=== PATIENT | female | born 1960 | race Caucasian/White ===

== ENCOUNTER 2017-06-12 05:53 | Inpatient (IN) ==
[2017-06-12] MEDS ORDERED: methylPREDNISolone 125 MG/2 ML VIAL IVP ONE (06:12)
[2017-06-12] MEDS ORDERED: Ipratropium/Albuterol Neb 3 ML IH ONE (06:12)
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
[2017-06-12 06:47] LABS: Basophils # 0.1 K/mcL (0.0-0.2); Basophils % 0.4 %; Eosinophils # 0.3 K/mcL (0.0-0.6); Eosinophils % 2.8 %; Hemoglobin 14.4 g/dL (11.5-15.4); Immature Granulocytes % 0.5 % (0-4); Lymphocytes # 1.4 K/mcL (0.6-4.6); Mean Corpuscular Hemoglobin 30.8 pg (28.0-33.3); Mean Corpuscular Volume 96.2 fL (83.0-100.0); Mean Platelet Volume 9.2 fL (9.4-12.4); Monocytes # 0.9 K/mcL (0.0-1.3); Monocytes % 7.7 %; Neutrophils # 8.7 K/mcL (1.6-8.9); Platelet Count 466 K/mcL (140-400); Red Blood Count 4.68 M/mcL (3.82-4.97); Segmented Neutrophils % 76.6 %
[2017-06-12 07:00] LABS: BUN/Creatinine Ratio 8 (6-26); Blood Urea Nitrogen 6 mg/dL (7-20); Calcium 9.4 mg/dL (8.6-10.8); Carbon Dioxide 28 mEq/L (19-29); Chloride 105 mEq/L (98-109); Glucose 102 mg/dL (70-99); Osmolality,Calculated 286 (280-300); Potassium 4.9 mEq/L (3.5-4.5); Sodium 139 mEq/L (136-145); eGFR For African Americans > 60 (> 60); eGFR For Non-African Americans > 60 (> 60)
[2017-06-12] MEDS ORDERED: *HR* OxyCODONE/APAP 5/325 TABLET PO ONE (07:32)
[2017-06-12] MEDS ORDERED: Acetaminophen 325 MG TABLET PO PRN (09:30)
[2017-06-12] MEDS ORDERED: Naloxone 0.4 MG/ML INJ IVP PRN (09:30)
[2017-06-12] MEDS ORDERED: Albuterol 2.5 MG/3 ML NEBULIZER IH PRN (09:30)
[2017-06-12] MEDS ORDERED: Famotidine 20 MG TABLET PO PRN (09:35)
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
[2017-06-12] MEDS: 0.9 % Sodium Chloride 1,000 ML IVC SCH ×2 (10:32→20:03)
[2017-06-12] MEDS: *HR* Heparin 5,000 UNIT/ML VIAL SQ SCH ×2 (10:36→16:47)
[2017-06-12] MEDS: levoFLOXacin 500 MG TABLET PO SCH (10:36)
[2017-06-12] MEDS: Ipratropium/Albuterol Neb 3 ML IH SCH ×4 (11:19→23:39)
--- NOTE | 2017-06-12 15:39 | Electrocardiograph Report ---
[place] [id number] Test Date: 2017-06-12 Pat Name: Delmis Ro Department: 104 Room: [facility] Gender: F Engraver: AMANDA : 1960 Requested By: Tracy Perera Order Number: [id number] Reading MD: Yasmany Sarabia Measurements Intervals [place] Rate: 94 P: 79 AL: 153 QRS: 69 QRSD: 84 T: 61 QT: 320 QTc: 372 Interpretive Statements SINUS RHYTHM WITH FREQUENT VENTRICULAR PREMATURE COMPLEXES ABNORMAL RHYTHM ECG Electronically Signed On 06-12-2017 15:37:35 EST by Yasmany Sarabia
[2017-06-12] MEDS: methylPREDNISolone 125 MG/2 ML VIAL IVP SCH (16:44)
[2017-06-12] MEDS: *HR* OxyCODONE Immed Rel 5 MG TABLET PO PRN (17:09)
[2017-06-12] MEDS: lamoTRIgine 100 MG TABLET PO SCH (20:02)
[2017-06-12] MEDS: clonazePAM 1 MG TABLET PO SCH (20:03)
[2017-06-13] MEDS: *HR* OxyCODONE Immed Rel 5 MG TABLET PO PRN ×2 (00:06→06:35)
[2017-06-13] MEDS: methylPREDNISolone 125 MG/2 ML VIAL IVP SCH ×3 (00:06→16:47)
[2017-06-13] MEDS: Ipratropium/Albuterol Neb 3 ML IH SCH ×6 (04:05→23:22)
[2017-06-13 04:42] LABS: Alanine Aminotransferase 16 Units/L (0-55); Albumin 2.7 g/dL (3.5-5.0); Albumin/Globulin Ratio 0.8 (1.1-2.2); Alkaline Phosphatase 139 Units/L (38-126); Aspartate Amino Transferase 13 Units/L (5-34); BUN/Creatinine Ratio 19 (6-26); Bilirubin,Total 0.2 mg/dL (0.2-1.2); Blood Urea Nitrogen 13 mg/dL (7-20); Calcium 9.2 mg/dL (8.6-10.8); Carbon Dioxide 27 mEq/L (19-29); Chloride 107 mEq/L (98-109); Globulin 3.4 g/dL (2.4-3.5); Glucose 179 mg/dL (70-99); Magnesium 1.7 mg/dL (1.6-2.6); Osmolality,Calculated 297 (280-300); Potassium 4.1 mEq/L (3.5-4.5); Sodium 141 mEq/L (136-145); Total Protein 6.1 g/dL (6.0-8.3); eGFR For African Americans > 60 (> 60); eGFR For Non-African Americans > 60 (> 60)
[2017-06-13] MEDS: *HR* Heparin 5,000 UNIT/ML VIAL SQ SCH ×2 (06:31→16:51)
[2017-06-13] MEDS: clonazePAM 1 MG TABLET PO SCH ×2 (09:00→20:05)
[2017-06-13] MEDS: lamoTRIgine 100 MG TABLET PO SCH ×2 (09:00→20:04)
[2017-06-13] MEDS: levoFLOXacin 500 MG TABLET PO SCH (09:01)
[2017-06-13] MEDS: ARIPiprazole 10 MG TABLET PO SCH (09:02)
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
[2017-06-13] MEDS ORDERED: traMADol 50 MG TABLET PO PRN (14:50)
[2017-06-14] MEDS: methylPREDNISolone 125 MG/2 ML VIAL IVP SCH ×3 (00:14→16:33)
[2017-06-14] MEDS: Ipratropium/Albuterol Neb 3 ML IH SCH ×6 (03:21→23:36)
[2017-06-14] MEDS: *HR* Heparin 5,000 UNIT/ML VIAL SQ SCH ×2 (05:18→16:32)
[2017-06-14 05:39] LABS: Basophils % 0.1 %; Hematocrit 39.9 % (35.3-44.9); Immature Granulocytes % 0.5 % (0-4); Lymphocytes # 0.9 K/mcL (0.6-4.6); Lymphocytes % 4.9 %; Mean Corpuscular HGB Conc 31.1 g/dL (31.6-35.5); Mean Corpuscular Hemoglobin 30.2 pg (28.0-33.3); Mean Corpuscular Volume 97.1 fL (83.0-100.0); Mean Platelet Volume 9.8 fL (9.4-12.4); Monocytes % 1.3 %; Platelet Count 506 K/mcL (140-400); Red Blood Count 4.11 M/mcL (3.82-4.97); Red Cell Distribution Width 16.5 % (11.5-14.5); Segmented Neutrophils % 93.2 %
[2017-06-14 05:50] LABS: Hemoglobin 12.4 g/dL (11.5-15.4); Monocytes # 0.2 K/mcL (0.0-1.3); Neutrophils # 17.2 K/mcL (1.6-8.9)
[2017-06-14 07:25] LABS: BUN/Creatinine Ratio 16 (6-26); Blood Urea Nitrogen 11 mg/dL (7-20); Calcium 9.7 mg/dL (8.6-10.8); Carbon Dioxide 24 mEq/L (19-29); Chloride 107 mEq/L (98-109); Glucose 132 mg/dL (70-99); Osmolality,Calculated 289 (280-300); Potassium 4.4 mEq/L (3.5-4.5); Sodium 139 mEq/L (136-145); eGFR For African Americans > 60 (> 60); eGFR For Non-African Americans > 60 (> 60)
[2017-06-14] MEDS: levoFLOXacin 500 MG TABLET PO SCH (07:36)
[2017-06-14] MEDS: lamoTRIgine 100 MG TABLET PO SCH ×2 (07:36→19:54)
[2017-06-14] MEDS: ARIPiprazole 10 MG TABLET PO SCH (07:36)
[2017-06-14] MEDS: clonazePAM 1 MG TABLET PO SCH ×2 (07:37→19:54)
[2017-06-14] MEDS: Nicotine 21 MG PATCH.TD24 TD SCH (07:45)
[2017-06-14 09:28] LABS: Basophils % 0.1 %; Hematocrit 38.2 % (35.3-44.9); Hemoglobin 12.1 g/dL (11.5-15.4); Immature Granulocytes % 0.6 % (0-4); Lymphocytes # 0.9 K/mcL (0.6-4.6); Lymphocytes % 5.3 %; Mean Corpuscular HGB Conc 31.7 g/dL (31.6-35.5); Mean Corpuscular Hemoglobin 30.4 pg (28.0-33.3); Mean Platelet Volume 9.3 fL (9.4-12.4); Monocytes # 0.2 K/mcL (0.0-1.3); Monocytes % 1.4 %; Neutrophils # 15.7 K/mcL (1.6-8.9); Platelet Count 484 K/mcL (140-400); Red Blood Count 3.98 M/mcL (3.82-4.97); Red Cell Distribution Width 16.3 % (11.5-14.5); Segmented Neutrophils % 92.6 %
[2017-06-14 09:40] LABS: BUN/Creatinine Ratio 15 (6-26); Blood Urea Nitrogen 10 mg/dL (7-20); Calcium 9.5 mg/dL (8.6-10.8); Carbon Dioxide 25 mEq/L (19-29); Chloride 108 mEq/L (98-109); Glucose 145 mg/dL (70-99); Osmolality,Calculated 296 (280-300); Potassium 4.1 mEq/L (3.5-4.5); Sodium 142 mEq/L (136-145); eGFR For African Americans > 60 (> 60); eGFR For Non-African Americans > 60 (> 60)
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
[2017-06-15] MEDS: Ipratropium/Albuterol Neb 3 ML IH SCH ×5 (04:22→19:55)
[2017-06-15] MEDS: *HR* Heparin 5,000 UNIT/ML VIAL SQ SCH ×2 (05:08→17:26)
[2017-06-15 05:24] LABS: Basophils % 0.1 %; Hemoglobin 12.9 g/dL (11.5-15.4); Immature Granulocytes % 0.5 % (0-4); Lymphocytes # 1.6 K/mcL (0.6-4.6); Lymphocytes % 11.7 %; Mean Corpuscular HGB Conc 31.5 g/dL (31.6-35.5); Mean Corpuscular Hemoglobin 30.6 pg (28.0-33.3); Mean Corpuscular Volume 97.4 fL (83.0-100.0); Monocytes # 0.8 K/mcL (0.0-1.3); Monocytes % 5.8 %; Neutrophils # 11.4 K/mcL (1.6-8.9); Platelet Count 488 K/mcL (140-400); Red Blood Count 4.21 M/mcL (3.82-4.97); Red Cell Distribution Width 16.7 % (11.5-14.5); Segmented Neutrophils % 81.9 %
[2017-06-15 05:44] LABS: BUN/Creatinine Ratio 15 (6-26); Blood Urea Nitrogen 11 mg/dL (7-20); Calcium 10.1 mg/dL (8.6-10.8); Carbon Dioxide 30 mEq/L (19-29); Chloride 105 mEq/L (98-109); Glucose 97 mg/dL (70-99); Osmolality,Calculated 293 (280-300); Sodium 142 mEq/L (136-145); eGFR For African Americans > 60 (> 60); eGFR For Non-African Americans > 60 (> 60)
[2017-06-15] MEDS: methylPREDNISolone 125 MG/2 ML VIAL IVP SCH (06:37)
[2017-06-15] MEDS: levoFLOXacin 500 MG TABLET PO SCH (08:56)
[2017-06-15] MEDS: ARIPiprazole 10 MG TABLET PO SCH (08:56)
[2017-06-15] MEDS: lamoTRIgine 100 MG TABLET PO SCH ×2 (08:57→21:31)
[2017-06-15] MEDS: clonazePAM 1 MG TABLET PO SCH ×2 (08:57→21:31)
[2017-06-15] MEDS: Nicotine 21 MG PATCH.TD24 TD SCH (08:58)
[2017-06-15] MEDS ORDERED: predniSONE 20 MG TABLET PO SCH (09:00)
[2017-06-15] MEDS: predniSONE 20 MG TABLET PO SCH (09:31)
[2017-06-15] MEDS ORDERED: Acetylcysteine 10% 2 ML INHSOL IH STA (09:32)
[2017-06-15] MEDS ORDERED: predniSONE 20 MG TABLET PO ONE (09:32)
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
[2017-06-15 17:36] LABS: Adenovirus Not Detected (Not Detect); Coronavirus 229E Not Detected (Not Detect); Coronavirus HKU1 Not Detected (Not Detect); Coronavirus NL63 Not Detected (Not Detect); Coronavirus OC43 Not Detected (Not Detect); Human Metapneumovirus Not Detected (Not Detect); Human Rhinovirus/Enterovirus ***DETECTED*** (Not Detect)
[2017-06-15 17:37] LABS: Bordetella Pertussis Not Detected (Not Detect); Chlamydophila pneumoniae Not Detected (Not Detect); Influenza A Subtype 2009 H1 Not Detected (Not Detect); Influenza A Untypeable Not Detected (Not Detect); Influenza B Not Detected (Not Detect); Mycoplasma pneumoniae Not Detected (Not Detect); Parainfluenza Virus 1 Not Detected (Not Detect); Parainfluenza Virus 2 Not Detected (Not Detect); Parainfluenza Virus 3 Not Detected (Not Detect); Parainfluenza Virus 4 Not Detected (Not Detect); Respiratory Syncytial Virus Not Detected (Not Detect)
[2017-06-16] MEDS: Ipratropium/Albuterol Neb 3 ML IH SCH ×5 (00:36→15:12)
[2017-06-16] MEDS: *HR* Heparin 5,000 UNIT/ML VIAL SQ SCH (05:47)
[2017-06-16] MEDS: lamoTRIgine 100 MG TABLET PO SCH (08:17)
[2017-06-16] MEDS: clonazePAM 1 MG TABLET PO SCH (08:18)
[2017-06-16] MEDS: ARIPiprazole 10 MG TABLET PO SCH (08:18)
[2017-06-16] MEDS: predniSONE 20 MG TABLET PO SCH (08:18)
[2017-06-16] MEDS: levoFLOXacin 500 MG TABLET PO SCH (08:18)
[2017-06-16] MEDS: Nicotine 21 MG PATCH.TD24 TD SCH (08:19)
[2017-06-16] MEDS ORDERED: Budesonide/Formoterol 160/4.5 MDI IH STA (09:11)
[2017-06-16 11:22] VITALS: BP 106/61
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
[2017-06-16] MEDS ORDERED: FLUARIX QUAD 2017-18 36MOS UP/PF 0.5 ML SYRINGE IM ONE (13:04)
== END 2017-06-16 15:00 | disposition home or self-care (01) | DRG 140 ==
LOC: EMEROO 05:53 → 3BNU 05:53
PROVIDERS: ADMIT Pediatrics; ATTEND Registered Nurse